=== PATIENT | female | born 1975 | race Caucasian/White ===

== ENCOUNTER 2016-08-26 14:07 | Emergency (ER) | payer OTHER ==
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
== END 2016-08-26 16:40 | disposition home or self-care (01) ==
LOC: CFTX 14:07
DX: S06.0X9A Concussion with loss of consciousness of unspecified duration, initial encounter (principal); S33.5XXA Sprain of ligaments of lumbar spine, initial encounter; S13.4XXA Sprain of ligaments of cervical spine, initial encounter; S00.83XA Contusion of other part of head, initial encounter; S20.211A Contusion of right front wall of thorax, initial encounter; F17.210 Nicotine dependence, cigarettes, uncomplicated; Z88.5 Allergy status to narcotic agent; Z23 Encounter for immunization; X58.XXXA Exposure to other specified factors, initial encounter; Y92.9 Unspecified place or not applicable
CPT/HCPCS: 70450; 70486; 71100; 72100; 72125; 73030; 73562; 90471; 90715; 99284